=== PATIENT | male | born 1940 | race Caucasian/White ===

== ENCOUNTER → 2016-11-20 | Outpatient (CLI) | payer OTHER, BC | LOC: BMCIMAGING 13:36 | PROVIDERS: ATTEND Internal Medicine Endocrinology, Diabetes & Metabolism | DX: E04.2 Nontoxic multinodular goiter (principal) | CPT/HCPCS: 76536-PO ==

== ENCOUNTER → 2018-05-13 | Outpatient (CLI) | payer OTHER, BC | LOC: BMCIMAGING 11:19 | PROVIDERS: ATTEND Internal Medicine | DX: R10.9 Unspecified abdominal pain (principal) ==

== ENCOUNTER → 2018-06-10 | Outpatient (CLI) | payer OTHER, BC | LOC: FIMAGING 11:52 | PROVIDERS: ATTEND Internal Medicine | DX: R10.9 Unspecified abdominal pain (principal); I70.0 Atherosclerosis of aorta ==